=== PATIENT | female | born 1935 | race Hispanic/Latino ===

== ENCOUNTER 2018-09-15 18:33 | Emergency (ER) | payer MEDICARE ==
[2018-09-15] MEDS ORDERED: IPRATROPIUM/ALBUTEROL SULFATE 3 ML SOLUTION IH ONE ×2 (19:04→21:37)
[2018-09-15 19:28] LABS: BASOPHILS % (AUTO) 0.2 % (0.0-5.0); EOSINOPHILS % (AUTO) 2.5 % (0.0-8.0); HEMATOCRIT 33.3 % (36-48); LYMPHOCYTES % (AUTO) 18.3 % (21.0-51.0); MEAN CORPUSCULAR HEMOGLOBIN 33.7 pg (27.0-33.0); MEAN CORPUSCULAR HGB CONC 34.3 g/dL (32.0-36.0); MEAN CORPUSCULAR VOLUME 98.3 fL (79-99); PLATELET COUNT (AUTO) 116 K/uL (130-400); RED BLOOD CELL COUNT(AUTO) 3.39 MIL/uL (4.00-5.50); WHITE BLOOD COUNT (AUTO) 7.3 K/uL (4.8-10.8)
[2018-09-15 19:43] LABS: PARTIAL THROMBOPLASTIN TIME 27.8 SEC (26.3-35.5); PROTHROMBIN TIME 10.5 SEC (9.6-11.6)
[2018-09-15 19:48] LABS: CREATININE 1.4 mg/dL (0.5-1.5); POTASSIUM 3.6 mmol/L (3.5-5.1)
[2018-09-15] MEDS ORDERED: METHYLPREDNISOLONE SOD SUCC 125MG/2ML VIAL ONE (19:48)
[2018-09-15 19:52] LABS: ALBUMIN 3.3 g/dL (3.5-5.0); BILIRUBIN,TOTAL 0.5 mg/dL (0.2-1.0); TOTAL PROTEIN, SERUM 7.2 g/dL (6.0-8.3)
[2018-09-15 20:07] LABS: B-TYPE NATRIURETIC PEPTIDE 82 pg/mL (0-100)
[2018-09-15] MEDS ORDERED: BENZONATATE 100 MG CAPSULE PO ONE (21:09)
[2018-09-15] MEDS ORDERED: SODIUM CHLORIDE 0.9% 1000ML 1,000 ML IV ONE (21:09)
[2018-09-15] MEDS ORDERED: OSELTAMIVIR PHOSPHATE 75 MG CAP ONE (21:10)
== END 2018-09-15 22:21 | disposition home or self-care (01) ==
LOC: EDH 18:33
DX: J09.X2 Influenza due to identified novel influenza A virus with other respiratory manifestations (principal); J45.31 Mild persistent asthma with (acute) exacerbation
CPT/HCPCS: 36415; 71045; 80053; 82550; 83880; 84484; 85025; 85610; 85730; 87804 ×2; 93005; 94640 ×2; 96374; 99284; J2930; J7030

== ENCOUNTER 2019-01-20 12:53 | Inpatient (IN) | payer MEDICARE ==
[~2019-01-20] VITALS: Ht 147.3 cm; Wt 55.9 kg
[2019-01-20] MEDS ORDERED: IPRATROPIUM/ALBUTEROL SULFATE 3 ML SOLUTION IH ONE (13:18)
[2019-01-20 13:26] LABS: BASOPHILS % (AUTO) 0.2 % (0.0-5.0); EOSINOPHILS % (AUTO) 2.1 % (0.0-8.0); HEMATOCRIT 33.3 % (36-48); LYMPHOCYTES % (AUTO) 6.2 % (21.0-51.0); MEAN CORPUSCULAR HEMOGLOBIN 33.6 pg (27.0-33.0); MEAN CORPUSCULAR VOLUME 98.8 fL (79-99); MONOCYTES % (AUTO) 6.9 % (3.0-13.0); NEUTROPHILS % (AUTO) 84.6 % (40.0-77.0); PLATELET COUNT (AUTO) 150 K/uL (130-400); RED BLOOD CELL COUNT(AUTO) 3.37 MIL/uL (4.00-5.50); WHITE BLOOD COUNT (AUTO) 9.9 K/uL (4.8-10.8)
[2019-01-20] MEDS ORDERED: DEXAMETHASONE SOD PHOSPHATE 10MG/ML 1ML VIAL ONE (13:32)
[2019-01-20 13:33] LABS: CREATININE 1.4 mg/dL (0.5-1.5); POTASSIUM 4.1 mmol/L (3.5-5.1)
[2019-01-20 13:37] LABS: ALBUMIN 3.3 g/dL (3.5-5.0); BILIRUBIN,DIRECT 0.1 mg/dL (0.0-0.3); BILIRUBIN,TOTAL 0.5 mg/dL (0.2-1.0); TOTAL PROTEIN, SERUM 7.1 g/dL (6.0-8.3)
[2019-01-20] MEDS ORDERED: ACETAMINOPHEN 325 MG TAB ONE (13:43)
[2019-01-20 13:54] LABS: INR 1.01 (0.85-1.15); PROTHROMBIN TIME 10.6 SEC (9.6-11.6)
[2019-01-20 15:26] LABS: APPEARANCE,URINE Clear (CLEAR); BILIRUBIN,URINE Negative (NEGATIVE); COLOR,URINE Yellow (YELLOW); GLUCOSE, URINE (UA) Negative (NEGATIVE); KETONES,URINE Negative (NEGATIVE); LEUKOCYTE ESTERASE ,URINE Negative (NEGATIVE); NITRATE,URINE Negative (NEGATIVE); OCCULT BLOOD,URINE Negative (NEGATIVE); PH,URINE 7.5 (5.0-8.0); PROTEIN,URINE Negative (NEGATIVE); UROBILINOGEN,URINE 0.2 mg/dL (0.2-1.0)
[2019-01-20] MEDS ORDERED: LACTULOSE 20 GM/30 ML UDCUP PO PRN (15:30)
[2019-01-20] MEDS ORDERED: ACETAMINOPHEN 325 MG TAB PO PRN ×2 (15:30)
[2019-01-20] MEDS ORDERED: HYDRALAZINE HCL 20 MG/ML VIAL IV PRN (15:30)
[2019-01-20] MEDS ORDERED: BUDESONIDE 0.5 MG/2 ML INH IH SCH (15:30)
[2019-01-20] MEDS ORDERED: ONDANSETRON HCL 4 MG/2 ML VIAL IV PRN (15:30)
[2019-01-20 15:48] LABS: MAGNESIUM 1.6 mg/dL (1.80-2.40); PHOSPHORUS 2.9 mg/dL (2.5-4.9)
[2019-01-20 16:00] VITALS: BP 122/57
[2019-01-20 16:20] LABS: ABG BASE EXCESS -2.1 mmol/L (-2.0-3.0); ABG HCO3 21.6 mmol/L (21.0-28.0); ABG PCO2 34 mmHg (32-45)
[2019-01-20] MEDS: IPRATROPIUM/ALBUTEROL SULFATE 3 ML SOLUTION IH SCH ×2 (18:03→23:12)
[2019-01-20] MEDS ORDERED: BUDESONIDE 0.5 MG/2 ML INH IH ONE (18:15)
[2019-01-20] MEDS: BUDESONIDE 0.5 MG/2 ML INH IH SCH (18:16)
[2019-01-20 19:10] VITALS: BP 125/65
[2019-01-20] MEDS: METHYLPREDNISOLONE SOD SUCC 40MG/ML 1ML IVP SCH (19:45)
[2019-01-20] MEDS: LEVOFLOXACIN 500 MG/D5W 100 ML 100 ML IV SCH (19:46)
--- NOTE | 2019-01-20 20:23 | NUR ---
dr. kruse aware patient in room 303
[2019-01-20] MEDS: METOPROLOL TARTRATE 25 MG TAB PO SCH (20:39)
--- NOTE | 2019-01-20 20:40 | NUR ---
MEDS PT RESTING WELL. NO CONCERNS VERBALIZED. NO RESPIRATORY DISTRESS NOTED. BREATHING WELL ON RA. DUE MEDS ADMINISTERED, TOLERATED WELL. KEPT COMFORTABLE IN BED WITH HOB ELEVATED. CALL LIGHT WITHIN REACH. WILL CONTINUE TO MONITOR.
--- NOTE | 2019-01-20 21:45 | NUR ---
MD DR MARVIN WAS IN TO SEE PT. NEW ORDERS GIVEN, PLEASE REFER TO CPOE.
[2019-01-20 23:40] VITALS: BP 117/50
[2019-01-21] MEDS: METHYLPREDNISOLONE SOD SUCC 40MG/ML 1ML IVP SCH ×3 (02:00→18:23)
--- NOTE | 2019-01-21 02:00 | NUR ---
PAIN PT COMPLAINTS OF ABDOMINAL PAINS. DUE SOLU-MEDROL GIVEN IV AND TYLENOL PO GIVEN FOR PAINS. WARM PACKS APPLIED TO ABDOMEN. KEPT COMFORTABLE. WILL RE-ASSESS PT.
[2019-01-21 04:50] VITALS: BP 113/56
[2019-01-21 04:51] LABS: MEAN CORPUSCULAR HGB CONC 34.3 g/dL (32.0-36.0); MEAN CORPUSCULAR VOLUME 99.2 fL (79-99); PLATELET COUNT (AUTO) 141 K/uL (130-400); RED BLOOD CELL COUNT(AUTO) 3.33 MIL/uL (4.00-5.50); RED CELL DISTRIBUTION WIDTH 13.6 % (11.0-15.5); WHITE BLOOD COUNT (AUTO) 9.3 K/uL (4.8-10.8)
[2019-01-21 05:07] LABS: CREATININE 1.4 mg/dL (0.5-1.5)
[2019-01-21] MEDS: IPRATROPIUM/ALBUTEROL SULFATE 3 ML SOLUTION IH SCH ×3 (05:17→18:15)
[2019-01-21] MEDS: BUDESONIDE 0.5 MG/2 ML INH IH SCH ×2 (05:17→18:27)
[2019-01-21] MEDS ORDERED: MAGNESIUM 2GM PREMIX 50ML 50 ML IV PRN ×2 (06:45→07:30)
[2019-01-21] MEDS: INSULIN HUMULIN R 100 UNIT/ML 3ML SQ SCH ×4 (06:53→21:00)
--- NOTE | 2019-01-21 07:30 | NUR ---
REPORT AJ, PLASTIC STRAIGHTENING ROLL OPERATOR FOR HOSPITALIST, WAS IN TO SEE PT. NEW ORDERS GIVEN. PLEASE REFER TO CPOE. REPORT GIVEN TO SAMARA DAVILA. ENDORSING PT FOR MORE CARE AND MANAGEMENT.
[2019-01-21 08:00] VITALS: BP 139/70
[2019-01-21] MEDS: FAMOTIDINE 20MG TAB 20 MG TAB PO SCH (08:31)
[2019-01-21] MEDS: ENOXAPARIN SODIUM 40 MG/0.4 ML SYRINGE SQ SCH (08:32)
[2019-01-21] MEDS: METOPROLOL TARTRATE 25 MG TAB PO SCH ×2 (08:42→20:28)
[2019-01-21] MEDS ORDERED: ALBU8.5H8 IH (08:59)
--- NOTE | 2019-01-21 11:58 | NUR ---
DCP CM met with pt discussed dc plans. Pt is semi-independent prior to admission, lives at home with spouse. Has a walker, showr chair, nebulizer machine. Denies any other equipments/services. Pt feels safe to go back home, spouse able to assist with transportation and needs as necessary. DC plan to home once stable. CM to cont to follow up. Addendum: 01/21/19 at 1159 by CARLTON RAMIREZ LVN CM Amended: Links added.
[2019-01-21 12:00] VITALS: BP 129/58
[2019-01-21] MEDS: LEVOFLOXACIN 250 MG/D5W 50ML 50 ML IVPB SCH (15:07)
[2019-01-21] MEDS: LEVOFLOXACIN 500 MG/D5W 100 ML 100 ML IV SCH (15:12)
[2019-01-21 16:00] VITALS: BP 134/71
[2019-01-21 19:10] VITALS: BP 125/70
--- NOTE | 2019-01-21 20:30 | NUR ---
MEDS PT RESTING WELL. NO DISTRESS NOTED. NO CONCERNS VERBALIZED. DUE MEDS ADMINISTERED, TOLERATED WELL. SALINE LOCKED PT. ENCOURAGED TO REST AND SLEEP. CALL LIGHT WITHIN REACH. FAMILY AT BEDSIDE. WILL MONITOR PT.
--- NOTE | 2019-01-21 22:00 | NUR ---
ROUNDS PT RESTING WELL, ALREADY ASLEEP. NO DISTRESS NOTED. KEPT COMFORTABLE. WILL MONITOR PT.
[2019-01-21 23:31] VITALS: BP 117/66
[2019-01-22] MEDS: IPRATROPIUM/ALBUTEROL SULFATE 3 ML SOLUTION IH SCH ×5 (00:41→23:48)
[2019-01-22] MEDS: METHYLPREDNISOLONE SOD SUCC 40MG/ML 1ML IVP SCH (00:43)
--- NOTE | 2019-01-22 02:00 | NUR ---
ROUNDS PT FAIRLY ASLEEP WITH RESPIRATIONS EVEN AND UNLABORED. NO NOTED DISTRESS. KEPT UNDISTURBED FOR NOW. WILL MONITOR PT. CALL LIGHT WITHIN REACH.
[2019-01-22 03:42] VITALS: BP 125/73
--- NOTE | 2019-01-22 04:45 | NUR ---
COUGH PT CLAIMS OF FREQUENT COUGHING WITH WHITISH PHLEGM. NOTED TO HAVE HOARSE VOICE AND WITH WHEEZING. CALLED MARELY BLANCO POWER PRESS TENDER FOR HOSPITALIST AND REFERRED PT'S COMPLAINTS. NEW MED ORDER GIVEN. WILL MEDICATE PT.
[2019-01-22] MEDS ORDERED: GUAIFENESIN-CODEINE 5 ML SYRUP PO PRN (05:00)
[2019-01-22 05:09] LABS: HEMATOCRIT 32.3 % (36-48); LYMPHOCYTES % (AUTO) 3.5 % (21.0-51.0); MEAN CORPUSCULAR HEMOGLOBIN 33.3 pg (27.0-33.0); MEAN CORPUSCULAR HGB CONC 33.5 g/dL (32.0-36.0); MEAN CORPUSCULAR VOLUME 99.4 fL (79-99); NEUTROPHILS % (AUTO) 94.5 % (40.0-77.0); PLATELET COUNT (AUTO) 163 K/uL (130-400); RED BLOOD CELL COUNT(AUTO) 3.24 MIL/uL (4.00-5.50); RED CELL DISTRIBUTION WIDTH 13.4 % (11.0-15.5)
[2019-01-22 05:15] LABS: CREATININE 1.3 mg/dL (0.5-1.5); MAGNESIUM 2.8 mg/dL (1.80-2.40); POTASSIUM 4.2 mmol/L (3.5-5.1)
[2019-01-22] MEDS: BUDESONIDE 0.5 MG/2 ML INH IH SCH ×2 (06:13→18:48)
--- NOTE | 2019-01-22 07:10 | NUR ---
BROADCAST DIRECTOR OPERATIONS ANGELICA, BROADCAST DIRECTOR OPERATIONS FOR HOSPITALIST, IN TO MAKE ROUNDS. UPDATED ON PT'S CONDITION. NEW ORDERS GIVEN, PLEASE REFER TO CPOE. ENDORSED TO AM SHIFT FOR MORE CARE AND MANAGEMENT.
[2019-01-22] MEDS: INSULIN HUMULIN R 100 UNIT/ML 3ML SQ SCH ×4 (07:30→21:00)
[2019-01-22 08:00] VITALS: BP 129/66
[2019-01-22] MEDS: PREDNISONE 10 MG TABLET PO SCH ×2 (08:59→21:28)
[2019-01-22] MEDS: FAMOTIDINE 20MG TAB 20 MG TAB PO SCH (09:00)
[2019-01-22] MEDS: METOPROLOL TARTRATE 25 MG TAB PO SCH ×2 (09:00→21:28)
[2019-01-22] MEDS: ENOXAPARIN SODIUM 40 MG/0.4 ML SYRINGE SQ SCH (09:01)
[2019-01-22 12:00] VITALS: BP 121/61
--- NOTE | 2019-01-22 12:17 | NUR ---
ASST. TO BR AND BECAME VERY SOB, CHECKED O2 SATS AND WAS AT 88% PLACED ON 2 LITERS OF O2. WILL CONTINUE TO MONITOR SATS.
[2019-01-22 16:00] VITALS: BP 140/68
[2019-01-22] MEDS: LEVOFLOXACIN 250 MG/D5W 50ML 50 ML IVPB SCH (16:41)
[2019-01-22] MEDS: MONTELUKAST SODIUM 4 MG TAB.CHEW PO SCH (16:45)
[2019-01-22 20:00] VITALS: BP 138/64
[2019-01-23] VITALS: BP 140/76
[2019-01-23 04:00] VITALS: BP 110/61
[2019-01-23 05:14] LABS: HEMATOCRIT 31.3 % (36-48); LYMPHOCYTES % (AUTO) 5.7 % (21.0-51.0); MEAN CORPUSCULAR HEMOGLOBIN 33.7 pg (27.0-33.0); MEAN CORPUSCULAR HGB CONC 34.1 g/dL (32.0-36.0); MEAN CORPUSCULAR VOLUME 98.9 fL (79-99); MONOCYTES % (AUTO) 2.2 % (3.0-13.0); NEUTROPHILS % (AUTO) 92.1 % (40.0-77.0); PLATELET COUNT (AUTO) 143 K/uL (130-400); RED BLOOD CELL COUNT(AUTO) 3.17 MIL/uL (4.00-5.50); RED CELL DISTRIBUTION WIDTH 13.5 % (11.0-15.5); WHITE BLOOD COUNT (AUTO) 9.4 K/uL (4.8-10.8)
[2019-01-23 05:24] LABS: CREATININE 1.3 mg/dL (0.5-1.5); POTASSIUM 4.3 mmol/L (3.5-5.1)
[2019-01-23] MEDS: BUDESONIDE 0.5 MG/2 ML INH IH SCH (06:15)
[2019-01-23] MEDS: IPRATROPIUM/ALBUTEROL SULFATE 3 ML SOLUTION IH SCH ×2 (06:15→10:38)
[2019-01-23] MEDS ORDERED: MONT10TA21 PO (07:10)
[2019-01-23] MEDS ORDERED: LEVO500T2 PO (07:10)
[2019-01-23] MEDS ORDERED: METH4TAB3 PO (07:10)
[2019-01-23] MEDS: INSULIN HUMULIN R 100 UNIT/ML 3ML SQ SCH ×2 (07:30→11:30)
[2019-01-23 08:00] VITALS: BP 124/62
--- NOTE | 2019-01-23 08:00 | NUR ---
AM SHIFT ASSESSMENT, HEAD OF BED UP, EATING BKFT. O2 PER N/C ON AND IS BREATHING EASY.
[2019-01-23] MEDS: FAMOTIDINE 20MG TAB 20 MG TAB PO SCH (09:44)
[2019-01-23] MEDS: METOPROLOL TARTRATE 25 MG TAB PO SCH (09:44)
[2019-01-23] MEDS: MONTELUKAST SODIUM 4 MG TAB.CHEW PO SCH (09:44)
[2019-01-23] MEDS: PREDNISONE 10 MG TABLET PO SCH (09:44)
[2019-01-23] MEDS: ENOXAPARIN SODIUM 40 MG/0.4 ML SYRINGE SQ SCH (09:45)
[2019-01-23 11:54] VITALS: BP 137/69
--- NOTE | 2019-01-23 14:40 | NUR ---
DISCHARGED USING TEACH BACK, RX IN HAND FOR MEDROL DOSE PACK, SINGULAIR AND LEVOFLOXIN. WILL FOLLOW UP WIT PCP IN 3 TO 5DAYS. WAS ANXIOUS TO GO HOME. ON DISCHARGE STILL HAD SOME WHEEZING BILATERAL BUT STATED SO MUCH BETTER THAN WHEN SHE CAME IN.LIVES WITH HER SPOUSE WHOM IS VERY PROTECTIVE OF HER.
== END 2019-01-23 15:45 | disposition home or self-care (01) | DRG 202 ==
LOC: EDH 12:53 → OBSVTOIN 15:16 → EDHIP 15:16 → 3AH 16:44
PROVIDERS: ADMIT Internal Medicine; ATTEND Internal Medicine
DX: J45.21 Mild intermittent asthma with (acute) exacerbation (principal); R65.10 Systemic inflammatory response syndrome (SIRS) of non-infectious origin without acute organ dysfunction; R50.9 Fever, unspecified; M62.830 Muscle spasm of back; E83.42 Hypomagnesemia; E11.9 Type 2 diabetes mellitus without complications; Z90.721 Acquired absence of ovaries, unilateral; Z80.3 Family history of malignant neoplasm of breast; Z83.3 Family history of diabetes mellitus; Z82.5 Family history of asthma and other chronic lower respiratory diseases
CPT/HCPCS: 36415; 36600; 71045; 71046; 80048; 80076; 81003; 82803; 82948; 83605; 83735; 84100; 84145; 84484; 85025; 85027; 85610; 85730; 87040; 87088; 87804; 87807; 93005; 94640; 94664; 99291; G0378; J1100; J1650; J1815; J1956; J2920; J3475; J7512

== ENCOUNTER 2021-09-20 18:46 | Emergency (ER) | payer OTHER, MEDICARE ==
[~2021-09-20] VITALS: Ht 152.4 cm; Wt 59.0 kg
[~2021-09-20 18:46] MED LIST: ALBU8.5H8 IH; LEVO500T2 PO; METH4TAB3 PO; MONT10TA21 PO
[2021-09-20 20:48] LABS: BASOPHILS % (AUTO) 0.2 % (0.0-5.0); EOSINOPHILS % (AUTO) 1.7 % (0.0-8.0); LYMPHOCYTES % (AUTO) 22.6 % (21.0-51.0); MEAN CORPUSCULAR HEMOGLOBIN 32.2 pg (27.0-33.0); MEAN CORPUSCULAR HGB CONC 33.8 g/dL (32.0-36.0); MEAN CORPUSCULAR VOLUME 95.2 fL (79-99); MONOCYTES % (AUTO) 10.3 % (3.0-13.0); PLATELET COUNT (AUTO) 182 K/uL (130-400); RED BLOOD CELL COUNT(AUTO) 3.57 MIL/uL (4.00-5.50); RED CELL DISTRIBUTION WIDTH 13.5 % (11.0-15.5); WHITE BLOOD COUNT (AUTO) 5.2 K/uL (4.8-10.8)
[2021-09-20 21:01] LABS: CREATININE 1.1 mg/dL (0.5-1.5); POTASSIUM 3.8 mmol/L (3.5-5.1)
[2021-09-20 21:06] LABS: ALBUMIN 2.7 g/dL (3.5-5.0); BILIRUBIN,TOTAL 0.4 mg/dL (0.2-1.0); TOTAL PROTEIN, SERUM 6.2 g/dL (6.0-8.3)
[2021-09-20 21:13] LABS: B-TYPE NATRIURETIC PEPTIDE 75 pg/mL (0-100)
[2021-09-20 22:12] VITALS: BP 138/73
[2021-09-24] MEDS ORDERED: APIX5TAB PO (10:57)
== END 2021-09-20 22:13 | disposition home or self-care (01) ==
LOC: EDH 18:46
DX: R06.00 Dyspnea, unspecified (principal); R53.83 Other fatigue; J45.909 Unspecified asthma, uncomplicated; F41.9 Anxiety disorder, unspecified; Z79.52 Long term (current) use of systemic steroids; Z79.899 Other long term (current) drug therapy
CPT/HCPCS: 36415; 71045; 80053; 83880; 84484; 85025; 93005

== ENCOUNTER 2021-09-23 09:51 | Inpatient (IN) | payer MEDICARE, OTHER ==
[~2021-09-23] VITALS: Ht 149.9 cm; Wt 61.2 kg
[2021-09-23 10:15] LABS: BASOPHILS % (AUTO) 0.2 % (0.0-5.0); EOSINOPHILS % (AUTO) 1.8 % (0.0-8.0); HEMATOCRIT 34.2 % (36-48); LYMPHOCYTES % (AUTO) 18.9 % (21.0-51.0); MEAN CORPUSCULAR HEMOGLOBIN 32.7 pg (27.0-33.0); MEAN CORPUSCULAR HGB CONC 33.6 g/dL (32.0-36.0); MEAN CORPUSCULAR VOLUME 97.2 fL (79-99); MONOCYTES % (AUTO) 10.3 % (3.0-13.0); NEUTROPHILS % (AUTO) 67.3 % (40.0-77.0); PLATELET COUNT (AUTO) 197 K/uL (130-400); RED BLOOD CELL COUNT(AUTO) 3.52 MIL/uL (4.00-5.50); RED CELL DISTRIBUTION WIDTH 13.6 % (11.0-15.5); WHITE BLOOD COUNT (AUTO) 5.5 K/uL (4.8-10.8)
[2021-09-23 10:32] LABS: CREATININE 1.2 mg/dL (0.5-1.5); POTASSIUM 3.7 mmol/L (3.5-5.1)
[2021-09-23 10:37] LABS: ALBUMIN 2.7 g/dL (3.5-5.0); BILIRUBIN,TOTAL 0.4 mg/dL (0.2-1.0); TOTAL PROTEIN, SERUM 6.4 g/dL (6.0-8.3)
[2021-09-23] MEDS ORDERED: IPRATROPIUM/ALBUTEROL SULFATE 3 ML SOLUTION IH SCH (11:00)
[2021-09-23] MEDS ORDERED: IOHEXOL 350 MG/ML 100ML INFUS..BTL IV ONE (11:56)
[2021-09-23] MEDS ORDERED: LORAZEPAM 2 MG/ML 1 ML VIAL IVP ONE (15:00)
[2021-09-23] MEDS ORDERED: ENOXAPARIN SODIUM 60 MG/0.6 ML SQ ONE (15:00)
[2021-09-23] MEDS ORDERED: ONDANSETRON 4MG INJ IV PRN (15:30)
[2021-09-23] MEDS ORDERED: ACETAMINOPHEN 325 MG TAB PO PRN ×2 (15:30)
[2021-09-23] MEDS ORDERED: 0.9%NACL 1000ML 1,000 ML IV SCH (15:30)
[2021-09-23] MEDS ORDERED: PHARMACY COMMUNICATION MISC SCH (16:00)
[2021-09-23] MEDS ORDERED: BARICITINIB (EUA) 2 MG TABLET PO SCH (16:14)
[2021-09-23] MEDS ORDERED: 0.9%NACL 1000ML 1,000 ML IV ONE (16:52)
[2021-09-23] MEDS: DEXAMETHASONE 4 MG TAB PO SCH (17:03)
[2021-09-23] MEDS: IPRATROPIUM/ALBUTEROL SULFATE 3 ML SOLUTION IH SCH ×2 (18:45→22:32)
[2021-09-23] MEDS ORDERED: ENOXAPARIN SODIUM 60 MG/0.6 ML SQ SCH (21:00)
[2021-09-24] MEDS: IPRATROPIUM/ALBUTEROL SULFATE 3 ML SOLUTION IH SCH ×2 (02:13→06:00)
[2021-09-24 06:42] LABS: BASOPHILS % (AUTO) 0.3 % (0.0-5.0); HEMATOCRIT 31.2 % (36-48); LYMPHOCYTES % (AUTO) 14.2 % (21.0-51.0); MEAN CORPUSCULAR HEMOGLOBIN 32.1 pg (27.0-33.0); MEAN CORPUSCULAR HGB CONC 33.3 g/dL (32.0-36.0); MEAN CORPUSCULAR VOLUME 96.3 fL (79-99); MONOCYTES % (AUTO) 2.8 % (3.0-13.0); NEUTROPHILS % (AUTO) 79.6 % (40.0-77.0); PLATELET COUNT (AUTO) 193 K/uL (130-400); RED BLOOD CELL COUNT(AUTO) 3.24 MIL/uL (4.00-5.50); RED CELL DISTRIBUTION WIDTH 13.4 % (11.0-15.5); WHITE BLOOD COUNT (AUTO) 3.6 K/uL (4.8-10.8)
[2021-09-24 06:59] LABS: ALBUMIN 2.5 g/dL (3.5-5.0); BILIRUBIN,TOTAL 0.3 mg/dL (0.2-1.0); CREATININE 1.1 mg/dL (0.5-1.5); TOTAL PROTEIN, SERUM 5.9 g/dL (6.0-8.3)
[2021-09-24] MEDS ORDERED: PANTOPRAZOLE 40 MG TAB DR PO SCH (09:00)
[2021-09-24] MEDS ORDERED: ALBUTEROL INHALER 90MCG/INH IH PRN (09:00)
[2021-09-24] MEDS ORDERED: FAMOTIDINE 20MG TAB PO SCH (09:00)
[2021-09-24] MEDS ORDERED: APIXABAN 5 MG TABLET PO SCH ×2 (09:00)
[2021-09-24] MEDS ORDERED: IPRATROPIUM/ALBUTEROL SULFATE 3 ML SOLUTION IH PRN (09:00)
[2021-09-24] MEDS ORDERED: PANTOPRAZOLE 40 MG TAB DR ONE (10:42)
[2021-09-24] MEDS: DEXAMETHASONE 4 MG TAB PO SCH (10:47)
[2021-09-24] MEDS ORDERED: APIX5TAB PO ×2 (10:57)
[2021-09-24 13:03] VITALS: BP 132/76
[2021-09-25] MEDS ORDERED: PANTOPRAZOLE 40 MG TAB DR PO SCH (07:30)
== END 2021-09-24 13:37 | disposition home or self-care (01) | DRG 177 ==
LOC: EDH 09:51 → EDHIP 15:00
PROVIDERS: ADMIT Hospitalist; ATTEND Hospitalist
PROC: XW0DXM6 Introduction of Baricitinib into Mouth and Pharynx, External Approach, New Technology Group 6 (ICD-10-PCS; principal; 2021-09-23)
DX: U07.1 COVID-19 (principal); I26.99 Other pulmonary embolism without acute cor pulmonale; J96.01 Acute respiratory failure with hypoxia; F41.9 Anxiety disorder, unspecified; J45.909 Unspecified asthma, uncomplicated; N18.2 Chronic kidney disease, stage 2 (mild); E11.22 Type 2 diabetes mellitus with diabetic chronic kidney disease; K44.9 Diaphragmatic hernia without obstruction or gangrene; D64.9 Anemia, unspecified; M40.204 Unspecified kyphosis, thoracic region; M48.14 Ankylosing hyperostosis [Forestier], thoracic region; D72.819 Decreased white blood cell count, unspecified; Z83.3 Family history of diabetes mellitus; Z80.3 Family history of malignant neoplasm of breast; Z82.5 Family history of asthma and other chronic lower respiratory diseases
CPT/HCPCS: 36415; 71045; 71275; 80053; 83735; 83880; 84484; 85025; 85378; 85651; 86140; 87635; 93005; 93970; 94640; 94760; C9803; G0378; J1650; J2060; J7030; J8540; Q9967

== ENCOUNTER 2021-09-27 10:17 | Emergency (ER) | payer OTHER, MEDICARE ==
[~2021-09-27] VITALS: Ht 152.4 cm; Wt 54.4 kg
[~2021-09-27 10:17] MED LIST changes: +APIX5TAB PO; -LEVO500T2 PO
[2021-09-27] MEDS ORDERED: LORAZEPAM 2 MG/ML 1 ML VIAL IM SCH (11:00)
[2021-09-27] MEDS ORDERED: LORAZEPAM 2 MG/ML 1 ML VIAL ONE (11:06)
[2021-09-27 11:16] LABS: BASOPHILS % (AUTO) 0.7 % (0.0-5.0); EOSINOPHILS % (AUTO) 0.8 % (0.0-8.0); HEMATOCRIT 37.2 % (36-48); LYMPHOCYTES % (AUTO) 18.6 % (21.0-51.0); MEAN CORPUSCULAR HEMOGLOBIN 32.5 pg (27.0-33.0); MEAN CORPUSCULAR HGB CONC 33.3 g/dL (32.0-36.0); MEAN CORPUSCULAR VOLUME 97.6 fL (79-99); MONOCYTES % (AUTO) 8.2 % (3.0-13.0); NEUTROPHILS % (AUTO) 69.5 % (40.0-77.0); PLATELET COUNT (AUTO) 229 K/uL (130-400); RED BLOOD CELL COUNT(AUTO) 3.81 MIL/uL (4.00-5.50); RED CELL DISTRIBUTION WIDTH 13.5 % (11.0-15.5)
[2021-09-27 11:43] LABS: CREATININE 1.3 mg/dL (0.5-1.5); POTASSIUM 3.7 mmol/L (3.5-5.1)
[2021-09-27 11:50] LABS: BILIRUBIN,TOTAL 0.7 mg/dL (0.2-1.0)
[2021-09-27 11:51] LABS: ALBUMIN 2.9 g/dL (3.5-5.0); TOTAL PROTEIN, SERUM 6.6 g/dL (6.0-8.3)
[2021-09-27 12:03] VITALS: BP 137/61
[2021-09-27] MEDS ORDERED: HYDR25CA PO (12:32)
== END 2021-09-27 13:05 | disposition home or self-care (01) ==
LOC: EDH 10:17
DX: F41.9 Anxiety disorder, unspecified (principal); R06.00 Dyspnea, unspecified; J45.909 Unspecified asthma, uncomplicated; E11.9 Type 2 diabetes mellitus without complications; Z79.01 Long term (current) use of anticoagulants; Z79.52 Long term (current) use of systemic steroids; Z79.899 Other long term (current) drug therapy
CPT/HCPCS: 36415; 71045; 80053; 84484; 85025; 93005; 96372; 99285; J2060